=== PATIENT | male | born 1975 | race American Indian/Alaskan Native ===

== ENCOUNTER 2017-03-10 09:44 | Emergency (ER) | payer OTHER ==
--- NOTE | 2017-03-10 09:48 | EDM.PDOC ---
ED HPI GENERAL MEDICAL PROBLEM - General Chief Complaint: Abdominal Pain Stated Complaint: GALL BLADDER ATTACH Time Seen by Provider: 03/10/17 09:46 Source of Information: Reports: Patient, RN, RN Notes Reviewed History Limitations: Reports: No Limitations - History of Present Illness INITIAL COMMENTS - FREE TEXT/NARRATIVE: Arrives by POV with c/o "gallbladder attack". Pt last ate 4-6hrs ago, "tatertot hotdish". Approx. 1 to 1.5hrs ago pt had sudden onset of severe RUQ pain with nausea, vomiting, and diaphoresis. Pt states he nearly "blacked out" due to the pain. Pain radiates to Rt shoulder blade. Onset: Today, Sudden Duration: Constant Location: Reports: Abdomen Quality: Reports: Ache Severity: Severe Improves with: Reports: None Worsens with: Reports: None Context: Denies: Activity, Exercise, Lifting, Sick Contact, Trauma Associated Symptoms: Reports: No Other Symptoms Right Upper Abdomen Pain Score (Numeric/FACES): 10 - Related Data Allergies Allergy/AdvReac Type Severity Reaction Status Date / Time bee venom protein (honey bee) Allergy Swelling Verified 03/10/17 09:57 Penicillins Allergy Cannot Verified 03/10/17 09:57 Remember Home Meds: Home Meds . [No Known Home Meds] 03/10/17 [History] Past Medical History Psychiatric History: Reports: Addiction Social & Family History - Family History Family Medical History: Noncontributory - Living Situation & Occupation Living situation: Reports: with Family ED ROS GENERAL - Review of Systems Review Of Systems: ROS reveals no pertinent complaints other than HPI. ED EXAM, GI/ABD - Physical Exam Exam: See Below Exam Limited By: No Limitations General Appearance: Alert, WD/WN, Mild Distress (from pain), Active Emesis Eyes: Bilateral: Normal Appearance Nose: Normal Inspection, Normal Mucosa, No Blood Throat/Mouth: Normal Inspection, Normal Lips, Normal Teeth, Normal Gums, Normal Oropharynx, Normal Voice, No Airway Compromise Head: Atraumatic, Normocephalic Neck: Normal Inspection, Supple, Non-Tender, Full Range of Motion Respiratory/Chest: No Respiratory Distress, Lungs Clear, Normal Breath Sounds, No Accessory Muscle Use, Chest Non-Tender Cardiovascular: Normal Peripheral Pulses, Regular Rate, Rhythm, No Edema, No Gallop, No JVD, No Murmur, No Rub GI/Abdominal: Normal Bowel Sounds, Soft, No Distention, Tenderness (right upper quadrant), Jordan's Sign. No: Guarding, Rebound, Rigidity (Male) Exam: Deferred Rectal (Males) Exam: Deferred Back Exam: Normal Inspection, Full Range of Motion. No: CVA Tenderness (L), CVA Tenderness (R) Extremities: Normal Inspection Neurological: Alert, Oriented, CN II-XII Intact, Normal Cognition, Normal Gait, No Motor/Sensory Deficits Psychiatric: Anxious Skin Exam: Dry, Intact, Normal Color, No Rash, Diaphoretic EKG INTERPRETATION EKG Date: 03/10/17 Time: 10:31 Rhythm: other (junctional bradycardia) Rate (beats/min): 48 Robinson: normal P-wave: present QRS: normal ST-T: depressed (diffusely) QT: normal Comparison: other: (Repeat EKG: Sinus angella, rate 49, with a PVC.) Course - Vital Signs Last Recorded V/S: Last Vital Signs Temp 35.6 C 03/10/17 11:45 Pulse 40 L 03/10/17 11:45 Resp 15 03/10/17 11:45 BP 151/87 H 03/10/17 11:45 Pulse Ox 98 03/10/17 11:45 - Orders/Labs/Meds Labs: Laboratory Tests 03/10/17 03/10/17 03/10/17 Range/Units 10:14 10:14 10:14 WBC 6.3 (5.0-10.0) 10^3/uL RBC 4.58 L (4.6-6.2) 10^6/uL Hgb 14.2 (14.0-18.0) g/dL Hct 42.1 (40.0-54.0) % MCV 91.9 (80-100) fL MCH 31.0 (27.0-34.0) pg MCHC 33.7 (33.0-35.0) g/dL Plt Count 264 (150-450) 10^3/uL Neut % (Auto) 28.7 L (42.2-75.2) % Lymph % (Auto) 58.1 H (20.5-50.1) % Howell % (Auto) 8.1 H (2-8) % Eos % (Auto) 4.6 H (1.0-3.0) % Baso % (Auto) 0.5 (0.0-1.0) % D-Dimer, Quantitative (0-400) ng/mL Sodium 139 (135-145) mmol/L Potassium 3.5 L (3.6-5.0) mmol/L Chloride 103 (101-111) mmol/L Carbon Dioxide 25.0 (21.0-31.0) mmol/L Anion Gap 14.5 BUN 16 (7-18) mg/dL Creatinine 1.0 (0.6-1.3) mg/dL Est Cr Clr Drug Dosing 117.36 mL/min Estimated GFR (MDRD) > 60 BUN/Creatinine Ratio 16.00 Glucose 130 H (74-105) mg/dL Calcium 9.2 (8.4-10.2) mg/dl Magnesium (1.8-2.5) mg/dL Total Bilirubin 2.4 H (0.2-1.0) mg/dL AST 22 (10-42) IU/L ALT 13 (10-60) IU/L Alkaline Phosphatase 43 (42-121) IU/L Troponin I < 0.02 (0.00-0.02) ng/ml Total Protein 7.6 (6.7-8.2) g/dl Albumin 4.3 (3.2-5.5) g/dl Globulin 3.3 Albumin/Globulin Ratio 1.30 Amylase 56 (28-100) U/L Lipase 42 (22-51) U/L TSH, Ultra Sensitive (0.35-7.0) uIu/mL Urine Color (YELLOW) Urine Appearance (CLEAR) Urine pH (5.0-9.0) Ur Specific [place] (1.005-1.030) Urine Protein (NEGATIVE) Urine Glucose (UA) (NEGATIVE) Urine Ketones (NEGATIVE) Urine Occult Blood (NEGATIVE) Urine Nitrite (NEGATIVE) Urine Bilirubin (NEGATIVE) Urine Urobilinogen (0.2-1.0) mg/dL Ur Leukocyte Esterase (NEGATIVE) Urine RBC /HPF Urine WBC (0-5/HPF) /HPF Ur Epithelial Cells /HPF Amorphous Sediment (0/HPF) /HPF Urine Bacteria (0-FEW/HPF) /HPF Urine Mucus /LPF Urine Opiates Screen (NEGATIVE) Ur Oxycodone Screen (NEGATIVE) Urine Methadone Screen (NEGATIVE) Ur Barbiturates Screen (NEGATIVE) U Tricyclic Antidepress (NEGATIVE) Ur Phencyclidine Scrn (NEGATIVE) Ur Amphetamine Screen (NEGATIVE) U Methamphetamines Scrn (NEGATIVE) Urine MDMA Screen (NEGATIVE) U Benzodiazepines Scrn (NEGATIVE) Urine Cocaine Screen (NEGATIVE) U Marijuana (THC) Screen (NEGATIVE) Ethyl Alcohol < 5 mg/dL 03/10/17 03/10/17 03/10/17 Range/Units 10:14 10:14 10:14 WBC (5.0-10.0) 10^3/uL RBC (4.6-6.2) 10^6/uL Hgb (14.0-18.0) g/dL Hct (40.0-54.0) % MCV (80-100) fL MCH (27.0-34.0) pg MCHC (33.0-35.0) g/dL Plt Count (150-450) 10^3/uL Neut % (Auto) (42.2-75.2) % Lymph % (Auto) (20.5-50.1) % Howell % (Auto) (2-8) % Eos % (Auto) (1.0-3.0) % Baso % (Auto) (0.0-1.0) % D-Dimer, Quantitative < 100 (0-400) ng/mL Sodium (135-145) mmol/L Potassium (3.6-5.0) mmol/L Chloride (101-111) mmol/L Carbon Dioxide (21.0-31.0) mmol/L Anion Gap BUN (7-18) mg/dL Creatinine (0.6-1.3) mg/dL Est Cr Clr Drug Dosing mL/min Estimated GFR (MDRD) BUN/Creatinine Ratio Glucose (74-105) mg/dL Calcium (8.4-10.2) mg/dl Magnesium 2.2 (1.8-2.5) mg/dL Total Bilirubin (0.2-1.0) mg/dL AST (10-42) IU/L ALT (10-60) IU/L Alkaline Phosphatase (42-121) IU/L Troponin I (0.00-0.02) ng/ml Total Protein (6.7-8.2) g/dl Albumin (3.2-5.5) g/dl Globulin Albumin/Globulin Ratio Amylase (28-100) U/L Lipase (22-51) U/L TSH, Ultra Sensitive 1.89 (0.35-7.0) uIu/mL Urine Color (YELLOW) Urine Appearance (CLEAR) Urine pH (5.0-9.0) Ur Specific [place] (1.005-1.030) Urine Protein (NEGATIVE) Urine Glucose (UA) (NEGATIVE) Urine Ketones (NEGATIVE) Urine Occult Blood (NEGATIVE) Urine Nitrite (NEGATIVE) Urine Bilirubin (NEGATIVE) Urine Urobilinogen (0.2-1.0) mg/dL Ur Leukocyte Esterase (NEGATIVE) Urine RBC /HPF Urine WBC (0-5/HPF) /HPF Ur Epithelial Cells /HPF Amorphous Sediment (0/HPF) /HPF Urine Bacteria (0-FEW/HPF) /HPF Urine Mucus /LPF Urine Opiates Screen (NEGATIVE) Ur Oxycodone Screen (NEGATIVE) Urine Methadone Screen (NEGATIVE) Ur Barbiturates Screen (NEGATIVE) U Tricyclic Antidepress (NEGATIVE) Ur Phencyclidine Scrn (NEGATIVE) Ur Amphetamine Screen (NEGATIVE) U Methamphetamines Scrn (NEGATIVE) Urine MDMA Screen (NEGATIVE) U Benzodiazepines Scrn (NEGATIVE) Urine Cocaine Screen (NEGATIVE) U Marijuana (THC) Screen (NEGATIVE) Ethyl Alcohol mg/dL 03/10/17 03/10/17 Range/Units 10:56 10:56 WBC (5.0-10.0) 10^3/uL RBC (4.6-6.2) 10^6/uL Hgb (14.0-18.0) g/dL Hct (40.0-54.0) % MCV (80-100) fL MCH (27.0-34.0) pg MCHC (33.0-35.0) g/dL Plt Count (150-450) 10^3/uL Neut % (Auto) (42.2-75.2) % Lymph % (Auto) (20.5-50.1) % Howell % (Auto) (2-8) % Eos % (Auto) (1.0-3.0) % Baso % (Auto) (0.0-1.0) % D-Dimer, Quantitative (0-400) ng/mL Sodium (135-145) mmol/L Potassium (3.6-5.0) mmol/L Chloride (101-111) mmol/L Carbon Dioxide (21.0-31.0) mmol/L Anion Gap BUN (7-18) mg/dL Creatinine (0.6-1.3) mg/dL Est Cr Clr Drug Dosing mL/min Estimated GFR (MDRD) BUN/Creatinine Ratio Glucose (74-105) mg/dL Calcium (8.4-10.2) mg/dl Magnesium (1.8-2.5) mg/dL Total Bilirubin (0.2-1.0) mg/dL AST (10-42) IU/L ALT (10-60) IU/L Alkaline Phosphatase (42-121) IU/L Troponin I (0.00-0.02) ng/ml Total Protein (6.7-8.2) g/dl Albumin (3.2-5.5) g/dl Globulin Albumin/Globulin Ratio Amylase (28-100) U/L Lipase (22-51) U/L TSH, Ultra Sensitive (0.35-7.0) uIu/mL Urine Color Yellow (YELLOW) Urine Appearance Slightly cloudy (CLEAR) Urine pH 7.5 (5.0-9.0) Ur Specific [place] 1.020 (1.005-1.030) Urine Protein 30 H (NEGATIVE) Urine Glucose (UA) Negative (NEGATIVE) Urine Ketones Negative (NEGATIVE) Urine Occult Blood Negative (NEGATIVE) Urine Nitrite Negative (NEGATIVE) Urine Bilirubin Small H (NEGATIVE) Urine Urobilinogen 4.0 H (0.2-1.0) mg/dL Ur Leukocyte Esterase Trace H (NEGATIVE) Urine RBC 0-5 /HPF Urine WBC 20-30 H (0-5/HPF) /HPF Ur Epithelial Cells Rare /HPF Amorphous Sediment Moderate (0/HPF) /HPF Urine Bacteria Few (0-FEW/HPF) /HPF Urine Mucus Rare /LPF Urine Opiates Screen Positive H (NEGATIVE) Ur Oxycodone Screen Negative (NEGATIVE) Urine Methadone Screen Negative (NEGATIVE) Ur Barbiturates Screen Negative (NEGATIVE) U Tricyclic Antidepress Negative (NEGATIVE) Ur Phencyclidine Scrn Negative (NEGATIVE) Ur Amphetamine Screen Positive H (NEGATIVE) U Methamphetamines Scrn Positive H (NEGATIVE) Urine MDMA Screen Negative (NEGATIVE) U Benzodiazepines Scrn Negative (NEGATIVE) Urine Cocaine Screen Negative (NEGATIVE) U Marijuana (THC) Screen Positive H (NEGATIVE) Ethyl Alcohol mg/dL Meds: Medications Discontinued Medications Generic Name Dose Route Start Last Admin Trade Name Freq PRN Reason Stop Dose Admin Fentanyl 100 mcg 03/10/17 10:58 03/10/17 11:02 Sublimaze IVPUSH 03/10/17 10:59 100 mcg ONETIME ONE Administration Hydromorphone HCl 1 mg 03/10/17 10:02 03/10/17 10:17 Dilaudid IVPUSH 03/10/17 10:03 1 mg ONETIME ONE Administration Sodium Chloride 1,000 mls @ 999 mls/hr 03/10/17 10:02 03/10/17 10:20 Normal Saline IV 03/10/17 11:02 999 mls/hr .BOLUS ONE Administration Iopamidol 100 ml 03/10/17 11:01 Isovue-300 (61%) IVPUSH 03/10/17 11:02 ONETIME ONE Ondansetron HCl 4 mg 03/10/17 10:02 03/10/17 10:20 Zofran IV 03/10/17 10:03 4 mg ONETIME ONE Administration Sodium Chloride 10 ml 03/10/17 10:01 03/10/17 10:12 Saline Flush FLUSH 10 ml ASDIRECTED PRN Administration Keep Vein Open - Radiology Interpretation Free Text/Narrative:: CT Abd/Pelvis: gallbladder distention without wall thickening or visible stone; see Rad. report. CT Results Date: 03/10/17 - Re-Assessments/Exams Free Text/Narrative Re-Assessment/Exam: 03/10/17 13:26 Pt had a vasovagal event reported by RN during triage, at which time pt became briefly bradycardic to HR 38. Pt states he runs 10 miles every day and has a resting heart rate of 42. Departure - Departure Time of Disposition: 13:17 Disposition: DC/Tfer to Acute Hospital 02 Condition: serious Clinical Impression: Biliary colic, Gallbladder dilatation, Bradycardia, Polysubstance abuse Abdominal pain Qualifiers: Abdominal location: right upper quadrant Qualified Code(s): R10.11 - Right upper quadrant pain - Discharge Information Referrals: PCP,None [Primary Care Provider] - Forms: ED Department Discharge, Interfacility Transfer RU
[2017-03-10] MEDS ORDERED: Sodium Chloride 0.9% 10 ML Syringe FLUSH PRN (10:01)
[2017-03-10] MEDS ORDERED: Sodium Chloride 0.9% 1,000 ML IV ONE (10:02)
[2017-03-10] MEDS ORDERED: Ondansetron 4 MG/2 ML SDV IV ONE (10:02)
[2017-03-10] MEDS ORDERED: HYDROmorphone 1 MG/ML Syringe IVPUSH ONE (10:02)
[2017-03-10 10:39] LABS: CHLORIDE,CL 103 mmol/L (101-111); SODIUM,NA 139 mmol/L (135-145)
[2017-03-10] MEDS ORDERED: fentaNYL 100 MCG/2 ML SDV IVPUSH ONE (10:58)
[2017-03-10] MEDS ORDERED: Iopamidol 612 MG/ML 100 ML Bottle IVPUSH ONE (11:01)
[2017-03-10 11:47] VITALS: BP 151/87
--- NOTE | 2017-03-10 12:17 | CT ---
CLINICAL HISTORY: 41-year-old 203 pound male with right upper quadrant pain who has had previous daryl endectomy. SCAN TECHNIQUE: Volume acquisition of data from the abdomen and pelvis obtained without oral contras t but during/after the intravenous administration 100 cc nonionic Isovue contrast while the patient was lying supine on the Siemens multislice CT scanner [facility]. All data archived in the PACS system for storage, reformatting and study. INTERPRETATION: 1. Diffuse mild fatty infiltration of the liver which is homogeneously dense and normal sized/config uration. No intrahepatic mass or intra/extrahepatic biliary duct dilatation. Normal spleen. Pancreas unremarkable. 2. Gallbladder distended in the right upper quadrant, has a uniformly thin wall and shows no sign of pericystic fluid or dependent intraluminal calcified gallstones, i.e., negative. 3. Normal appendix, RUQ abdomen. No abdominal or pelvic mass lesion, inflammatory "dirty" peritoneal fat, mesenteric/retroperitoneal lymphadenopathy, signs of mechanical bowel obstruction, ascites or free intraperitoneal air. 4. Normal caliber aortoiliac vessels. 5. Normal reniform size, axis and configuration without sign of renal cortical mass lesion, nephroli thiasis or obstructive uropathy. Symmetrically distended normal appearing urinary bladder. Prostate gland unremarkable. 6. Signs of chronic L3-4 disc disease with associated arthritis. 7. Normal cardiac silhouette. No pericardial effusion or pleural effusions. Lung bases clear. CONCLUSION: Fatty liver. Distended gallbladder. CT scan abdomen/pelvis otherwise unremarkable, i.e., negative.
--- NOTE | 2017-04-30 11:47 | EKG ---
03/10/2017- CIRILO MITCHELL - EKG done on a 41-year-old male, showing junctional rhythm with a heart rate of 40 beats per minute. Ischemic changes noted on the V5 to V6, T wave changes on inferior leads. [facility] /[id number] MTDD
== END 2017-03-10 13:51 ==
LOC: DL.ED 09:44
DX: K80.50 Calculus of bile duct without cholangitis or cholecystitis without obstruction (principal); K82.8 Other specified diseases of gallbladder; R00.1 Bradycardia, unspecified; F19.10 Other psychoactive substance abuse, uncomplicated; Z88.0 Allergy status to penicillin; Z91.030 Bee allergy status
CPT/HCPCS: 36415; 74177; 80053; 80305; 81001; 82150; 83690; 83735; 84443; 84484; 85025; 85379; 93005; 96361; 96374; 96375; 99291; 99292; G0480; J1170; J2405; J3010; J7030; J7050; Q9967